=== PATIENT | male | born 1985 | race Caucasian/White ===

== ENCOUNTER → 2021-12-11 10:47 | Outpatient (CLI) | payer BC, SELFPAY | PROVIDERS: PCP Radiology Diagnostic Radiology; Visit Provider Nurse Practitioner | DX: Z20.822 Contact with and (suspected) exposure to COVID-19 (principal) | CPT/HCPCS: C9803; U0003; U0005 ==

== ENCOUNTER → 2021-12-18 11:15 | Outpatient (CLI) | payer BC, SELFPAY | PROVIDERS: Visit Provider Nurse Practitioner | DX: Z20.822 Contact with and (suspected) exposure to COVID-19 (principal) | CPT/HCPCS: C9803; U0003; U0005 ==

== ENCOUNTER 2023-10-23 12:43 | Emergency (ER) | payer BC, SELFPAY ==
[2023-10-23 12:44] VITALS: BP 124/98; PULSE 85; RESP 20; TEMP 37; O2SAT 97; BMI 32.5
--- OUTSIDE RECORDS SUMMARY | 2023-10-23 12:49 | XMS_ITS | Patient Health Record ---
Author Name Unknown Organization [facility]ERINE Address [address] [place] [address] Care Team Providers Care Cad Designer Drafter Name Role Phone Cory Durán Primary Care Provider McTanya Cesar Unavailable [phone] ALLERGIES No Known Allergies RESULTS Component Value Reference Range Notes Rapid Strep Reviewed date:06/11/2023 11:15:27 AM Interpretation:Negative Performing Lab: Notes/Report: Negative Rapid screen INFLUENZA A&B Reviewed date:06/11/2023 10:51:05 AM Interpretation: Performing Lab: Notes/Report: INFLUENZA A negative INFLUENZA B negative Rapid Covid Antigen Reviewed date:06/11/2023 10:51:05 AM Interpretation:Negative Performing Lab: Notes/Report: Negative INFLUENZA A&B Reviewed date:02/18/2023 09:06:21 PM Interpretation: Performing Lab: Notes/Report: INFLUENZA A negative INFLUENZA B negative Rapid Strep Reviewed date:09/19/2023 04:35:34 PM Interpretation:Negative Performing Lab: Notes/Report: Negative Rapid screen REASON FOR REFERRAL No Information MEDICATIONS Medication SIG (Take, Route, Frequency, Duration) Notes Start Date End Date Status Vimpat 100 mg 1 tab(s) orally 2 times a day Active IMMUNIZATIONS
--- NOTE | 2023-10-23 12:58 | EXP.UTC ---
Discharge Plan Disposition Patient Disposition: Home, Self-Care Condition: Good Prescriptions Prescriptions: New cephalexin 500 mg capsule 500 mg PO QID Qty: 40 0RF No Action lamotrigine 200 MG tablet 200 mg PO DAILY Patient Comments: take 1 tablet by mouth twice a day lacosamide [Vimpat] 100 MG tablet 100 mg PO DAILY prednisone 20 MG tablet 20 mg PO BID Qty: 10 0RF Referrals Follow up/Referrals: Cory Durán MD [Primary Care Provider] - See instructions Activity Restrictions/Add. Instructions Additional Instructions/Restrictions: Keep the wound clean and dry. Watch the wound for signs of infection, such as redness, swelling, drainage, fever. etc. Take tylenol or ibuprofen for pain. Follow up with your regular doctor. GO TO THE ER FOR ANY WORSENING SYMPTOMS OR CONCERNS. Clinical Impressions Clinical Impression: Laceration of left thumb, Need for Tdap vaccination Instructions Patient Instructions: DI for Laceration Repair-Skin Glue, DI for Laceration Repair -- Finger Discharge ED Provider: Leo Bean [facility] General Stated complaint: CUT THUMB ON LT HAND Time Seen by Provider: 10/23/23 12:58 History of Present Illness Provider Complaint: He states that he was cutting up food for thanksgiving dinner when he slipped and cut himself on the tip of his left thumb. His tetanus immunization is not up to date. Related Data Home Medications Medication Instructions Recorded Confirmed lamotrigine 200 mg tablet 200 mg PO DAILY SEIZURES 04/30/18 08/17/18 lacosamide 100 mg tablet (Vimpat) 100 mg PO DAILY SEIZURES 08/17/18 08/17/18 Previous Rx's Medication Instructions Recorded prednisone 20 mg tablet 20 mg PO BID #10 tabs 08/17/18 cephalexin 500 mg capsule 500 mg PO QID #40 caps 10/23/23 Allergies Allergy/AdvReac Type Severity Reaction Status Date / Time No Known Allergies Allergy Verified 04/30/18 19:31 [facility] Disclaimer: The information contained in this section may have been updated after the patient was seen, as this information can be updated by other users. Social History Smoking Status: Never smoker alcohol intake: current current occupational status: employed Travel in the last 8 weeks: None ROS Obtained: Yes All systems reviewed & no additional complaints except as documented Constitutional Constitutional: Denies chills and Denies fever(s) Eyes Eyes: Denies eye discharge ENT Ears, Nose, Mouth, and Throat: Denies dizziness, Denies otalgia and Denies sore throat Cardiovascular Cardiovascular: Denies chest pain Respiratory Respiratory: Denies shortness of breath, Denies chest congestion, Denies cough, Denies stridor and Denies wheezing Gastrointestinal Gastrointestingal: Denies nausea or vomiting Musculoskeletal Musculoskeletal: Reports system reviewed and no additional complaints, except as documented and Denies arthralgias Integumentary/Breasts Skin/Breast: Reports as per HPI Neurologic Neurologic: Denies dizziness and Denies paresthesias Allergic/Immunologic Allergic/Immunologic: Denies wheezing Physical Exam General General appearance: alert and in no apparent distress Head Head exam: atraumatic, normocephalic and normal inspection Eye Eye exam: Present normal appearance, PERRL and EOMI ENT ENT exam: Present normal exam, normal oropharynx, mucous membranes moist, TM's normal bilaterally and normal external ear exam Neck Neck exam: Present normal inspection, full ROM and trachea midline; Absent meningismus or lymphadenopathy Chest Chest inspection: Present normal inspection and symmetric chest wall rise; Absent tenderness Respiratory Respiratory exam: Present normal lung sounds bilaterally; Absent respiratory distress Cardiovascular Cardiovascular exam: Present regular rate and normal rhythm; Absent JVD Abdominal Exam Abdominal exam: Present soft and normal bowel sounds; Absent distention, tenderness or gua
[2023-10-23 14:18] VITALS: BP 124/98; PULSE 85; RESP 14; TEMP 37; O2SAT 97
== END 2023-10-23 14:19 | disposition home or self-care (01) ==
PROVIDERS: Emergency Provider Nurse Practitioner Family; PCP Internal Medicine Adolescent Medicine
DX: S61.012A Laceration without foreign body of left thumb without damage to nail, initial encounter (principal); W26.0XXA Contact with knife, initial encounter; Z23 Encounter for immunization
CPT/HCPCS: 12001; 90714; 96372; 99204; 99213; G0463

== ENCOUNTER 2024-02-05 12:35 | Emergency (ER) | payer BC, SELFPAY ==
[2024-02-05 12:43] VITALS: BP 133/82; PULSE 96; RESP 18; TEMP 37; O2SAT 98; BMI 32.5
--- NOTE | 2024-02-05 12:53 | PC.NURSE ---
paged for for er
--- NOTE | 2024-02-05 12:53 | HMH.EDGENADL ---
Discharge Plan Disposition Patient Disposition: Home, Self-Care Prescriptions Prescriptions: No Action lamotrigine 200 MG tablet 200 mg PO DAILY Patient Comments: take 1 tablet by mouth twice a day lacosamide [Vimpat] 100 MG tablet 100 mg PO DAILY prednisone 20 MG tablet 20 mg PO BID Qty: 10 0RF cephalexin 500 mg capsule 500 mg PO QID Qty: 40 0RF Referrals Follow up/Referrals: Cory Durán MD [Primary Care Provider] - See instructions Jaun Marie MD [Staff Physician] - See instructions Activity Restrictions/Add. Instructions Additional Instructions/Restrictions: Please follow-up with gastroenterology or general surgery for an outpatient EGD. Clinical Impressions Clinical Impression: Esophageal obstruction due to food impaction Discharge ED Provider: Ang Palma General Adult HPI General Stated complaint: choked Time Seen by Provider: 02/05/24 12:44 History of Present Illness HPI narrative: Patient is a 39-year-old male presents today with difficulty swallowing after eating chicken while at a [employer] restaurant. States this happened several years ago did have an esophageal dilation after that but was not given any diagnosis at that time he has been asymptomatic since then. No history of eosinophilic esophagitis, or other inflammatory pathology. He has not followed up with GI since that time. States he was eating chicken and immediately felt like he was choking Heimlich maneuver was attempted on him but has been breathing and speaking without difficulty. He cannot tolerate any secretions or liquid and has been trying multiple times since that time. Related Data Home Medications Medication Instructions Recorded Confirmed lamotrigine 200 mg tablet 200 mg PO DAILY SEIZURES 04/30/18 08/17/18 lacosamide 100 mg tablet (Vimpat) 100 mg PO DAILY SEIZURES 08/17/18 08/17/18 Previous Rx's Medication Instructions Recorded prednisone 20 mg tablet 20 mg PO BID #10 tabs 08/17/18 cephalexin 500 mg capsule 500 mg PO QID #40 caps 10/23/23 Allergies Allergy/AdvReac Type Severity Reaction Status Date / Time No Known Allergies Allergy Verified 04/30/18 19:31 [facility] Disclaimer: The information contained in this section may have been updated after the patient was seen, as this information can be updated by other users. Social History (Updated 10/23/23 @ 14:15 by Leo Bean APRN) Smoking Status: Never smoker alcohol intake: current current occupational status: employed Travel in the last 8 weeks: None ROS Obtained: Yes All systems reviewed & no additional complaints except as documented Physical Exam General General appearance: other (Patient actively spitting unable to tolerate secretions) Respiratory Respiratory exam: Present normal lung sounds bilaterally and respiratory distress Cardiovascular Cardiovascular exam: Present regular rate and normal rhythm Abdominal Exam Abdominal exam: Present soft; Absent distention or tenderness Neurological Exam Neurological exam: Present alert and oriented X3 Medical Decision Making Arcadio Inquiry Pt receiving controlled substance: No Medical Decision Narrative: Patient actively spitting unable to tolerate any fluids. Clinically has evidence of a esophageal obstruction due to food impaction. I spoke with Dr. Pinon will take the patient to the operating room. Assessment shortly after this conversation patient was not retching and spontaneously passed. I subsequently followed up with Dr. Pinon and informed him of this. I informed the patient to follow-up with gastroenterology for downstream EGD to further look into the pathology that is causing this which she understood. Patient was discharged in improved condition. Critical Care Critical Care Time Critical Care Time: No
--- NOTE | 2024-02-05 13:00 | PC.NURSE ---
CALLED 'S OFFICE TO LET HIM KNOW WE NO LONGER NEEDED HIS SERVICE PT SPONTANEOUS PASSED IT
[2024-02-05 13:08] VITALS: BP 131/95; PULSE 101; RESP 18; TEMP 36.7; O2SAT 97
== END 2024-02-05 13:10 | disposition home or self-care (01) ==
PROVIDERS: Emergency Provider Student in an Organized Health Care Education/Training Program; PCP Internal Medicine Adolescent Medicine
DX: T18.128A Food in esophagus causing other injury, initial encounter (principal); W44.F3XA Food entering into or through a natural orifice, initial encounter
CPT/HCPCS: 99284

== ENCOUNTER 2024-03-25 14:31 | Day surgery (SDC) | payer BC, SELFPAY ==
[2024-03-25 14:32] VITALS: PULSE 106; RESP 18; TEMP 36.7; O2SAT 99; BMI 32.5
--- NOTE | 2024-03-25 15:06 | HMH.EDGENADL ---
Discharge Plan Disposition Patient Disposition: Home, Self-Care Clinical Impressions Clinical Impression: Foreign body in esophagus, Food bolus obstruction of intestine Discharge ED Provider: Giorgio Churchill General Adult HPI General Chief complaint: Skin/Abscess/Foreign Body Stated complaint: object lodged in throat Time Seen by Provider: 03/25/24 14:55 Mode of Arrival: Ambulatory Source of Information: Patient Limitations: No Limitations Description of Symptoms (Recalled from ER Triage Doc. by RN): States that he has a piece of food stuck in his throat. Patient actively throwing up. History of Present Illness HPI narrative: Please note that above description of symptoms, in this electronic medical record under categorization of recalled from ER triage doctor by RN are reflective of an initial nursing assessment, however, is not reflective of my full history and physical exam that was personally taken and clarified. Consequentially, this preceding description of symptoms, which may include the patient's categorized chief complaint in the EMR, do not reflect my personal clinical impression, and the ultimate description of history of present illness and patient stated complaints should be deferred to this section of the note. Unless stated otherwise or congruent with this section of the note, additional signs, symptoms, or incongruence should be interpreted as inaccurate with my clinical impression. Related Data Home Medications Medication Instructions Recorded Confirmed lamotrigine 200 mg tablet 200 mg PO DAILY SEIZURES 04/30/18 08/17/18 lacosamide 100 mg tablet (Vimpat) 100 mg PO DAILY SEIZURES 08/17/18 08/17/18 esomeprazole magnesium 20 mg 20 mg PO DAILY 03/25/24 03/25/24 capsule,delayed release Previous Rx's Medication Instructions Recorded prednisone 20 mg tablet 20 mg PO BID #10 tabs 08/17/18 cephalexin 500 mg capsule 500 mg PO QID #40 caps 10/23/23 Allergies Allergy/AdvReac Type Severity Reaction Status Date / Time No Known Allergies Allergy Verified 04/30/18 19:31 [facility] Disclaimer: The information contained in this section may have been updated after the patient was seen, as this information can be updated by other users. Social History (Updated 10/23/23 @ 14:15 by Leo Bean APRN) Smoking Status: Never smoker alcohol intake: current alcohol intake frequency: holidays/special occasions only current occupational status: employed Travel in the last 8 weeks: None ROS Obtained: Yes All systems reviewed & no additional complaints except as documented Physical Exam General General appearance: alert and in no apparent distress Head Head exam: atraumatic and normocephalic Eye Eye exam: Present normal appearance, PERRL and EOMI ENT ENT exam: Present mucous membranes moist Neck Neck exam: Present normal inspection, full ROM and trachea midline Respiratory Respiratory exam: Absent respiratory distress, wheezes, stridor, accessory muscle use or prolonged expiratory phase Cardiovascular Cardiovascular exam: Present normal rhythm Abdominal Exam Abdominal exam: Present soft; Absent distention, tenderness, guarding, rebound or rigidity Extremities Exam Extremities exam: Absent edema Neurological Exam Neurological exam: Present alert, oriented X3, CN II-XII intact and normal gait; Absent motor sensory deficit Skin Skin exam: Present warm and dry; Absent diaphoresis or erythema Medical Decision Making Medical Records Medical records reviewed: Yes I reviewed the patient's medical records. Arcadio Inquiry Pt receiving controlled substance: No Arcadio was queried for this patient: No Vital Signs: 03/25/24 14:32 03/25/24 16:00 Temperature 98.0 F Temperature Source Oral Pulse Rate 71 Pulse Rate [Radial] 106 H Respiratory Rate 18 Blood Pressure 130/82 02 Sat by Pulse Oximetry 99 96 Oxygen Delivery Method Room Air Room Air Lab Data Lab Results 03/25/24 14:16: WBC 8.4, RBC 5.38, Hgb 16.7, Hct 49.3, MCV 91.6, MCH 31.0, MCHC 33.9, RDW 13.7, Plt Count 214, MPV 8.4, Neut % (Auto) 60.4, Lymph % (Auto) 30.3, Fergus % (Auto) 5.0, Eos % (Auto) 2.8, Baso % (Auto) 1.5, Neut # (Auto) 5.1, Lymph # (Auto) 2.5, Fergus # (Auto) 0.4, Eos # (Auto) 0.2, Baso # (Auto) 0.1, Sodium 142, Potassium 4.1, Chloride 106, Carbon Dioxide 28, Anion Gap 12.1, BUN 14, Creatinine 1.10, Estimated Creat Clear 142, Estimated GFR 75, Est GFR ( Amer) 91, Glucose 111 H, Calcium 10.3 H, Total Bilirubin 0.8, AST 43, ALT 39, Alkaline Phosphatase 81, Total Protein 8.2, Albumin 4.8, Globulin 3.4 H, Albumin/Globulin Ratio 1.4, Lipase 90 03/25/24 14:16 03/25/24 14:16 Orders (Tests/Meds): ED MEDICATIONS Discontinued Medications Generic Name Dose Route Start Last Admin Trade Name Donna PRN Reason Stop Dose Admin Glucagon 1 mg 03/25/24 15:06 03/25/24 15:28 Glucagon 1 Mg/Ml Vial IV 03/25/24 15:07 1 mg ONCE ONE Administration Glucagon 1 mg 03/25/24 15:54 03/25/24 15:58 Glucagon 1 Mg/Ml Vial IV 03/25/24 15:55 1 mg ONCE ONE Administration Lactated Ringer's 1,000 mls @ 999 mls/hr 03/25/24 15:06 03/25/24 15:27 Lactated Ringer's 1000 Ml Bag IV 03/25/24 16:06 999 mls/hr .Q1H1M ONE Administration Ondansetron HCl 4 mg 03/25/24 15:06 03/25/24 15:28 Ondansetron 4mg/2ml Vial IV 03/25/24 15:07 4 mg ONCE ONE Administration ORDERS Category Date Time Status CBC w/Auto Diff [Complete Blood Count Auto Diff] Stat Lab 03/25/24 14:16 Completed CMP [Comprehensive Metabolic Panel] Stat Lab 03/25/24 14:16 Completed Lipase Stat Lab 03/25/24 14:16 Completed Medical Decision Narrative: 39-year-old male history of seizure disorder well-controlled presenting with concern for food bolus. Patient states that he has had food boluses in the past, they generally self joan with p.o. intake. Last had esophagus stretched about 2 years prior. Patient states that 6 weeks ago, had food bolus he came to the emergency department for, but it cleared up with some p.o. intake. Was discharged without issue. Today, about an hour prior to this visit, patient states that he was eating chicken and rice, felt something get stuck. Has been unable to tolerate any p.o. intake since that time. States that he is tolerating his secretions, however he can feel them building up in my throat, and he vomits up what looks like saliva and mucus every 20 to 30 minutes. No chest pain, shortness of breath, diarrhea, fevers or chills, blood in the vomit, or any other concerns. 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 History was obtained via conversation with patient. On arrival, patient hemodynamically stable, alert, oriented x4, appropriate, GCS 15, moving all extremities spontaneously, pupils equal and reactive to light. Full physical exam performed and signifIcant for very well-appearing male. Not actively retching on my exam, but holding back of vomitus. Lungs are clear to auscultation, cardiac exam within normal limits. Abdomen soft, nontender, nondistended. No evidence of crepitus on chest exam or abdominal exam. Vital signs stable. Differential includes food bolus, stricture, web, sling, Lisa's esophagus, partial versus full esophagus lesion, among others. Patient was given fluids, Zofran, 1 mg glucagon for symptomatic management and correction of underlying abnormalities. Workup independently interpreted and significant for nonactionable hematologic workup. On reevaluation, patient thinks he is tolerating small sips. Try to drink the rest of a small 4 ounce water bottle, throughout the remainder, unable to tolerate secretions. General surgery was contacted and case was discussed at length, patient to be taken to IR suite. Because patient not on PPI at home, I will be sending this to his pharmacy. Recommend that he follow-up with surgery and GI outpatient, both him and family voiced understanding. Because patient high risk for clinical decompensation, deemed appropriate for inpatient admission. Results were relayed to patient who voiced understanding and patient was agreeable to inpatient admission and management. Patient was admitted to the hospital for further definitive management. Critical Care Critical Care Time Critical Care Time: No
[2024-03-25] MEDS: LACTATED RINGERS 1000ML 1,000 ML 999 ML IV (15:27)
[2024-03-25] MEDS: ONDANSETRON 4MG/2ML VIAL 4 MG IV (15:28)
[2024-03-25] MEDS: GLUCAGON 1 MG/ML VIAL IV ×2 (15:28→15:58)
[2024-03-25 15:32] LABS: Basophils # 0.1 K/mm3 (0-0.2); Basophils % 1.5 % (0.1-2.0); Eosinophils # 0.2 K/mm3 (0.0-0.4); Eosinophils % 2.8 % (0.1-12.0); Hematocrit 49.3 % (42.0-52.0); Hemoglobin 16.7 g/dL (14.1-18.0); Lymphocytes # 2.5 K/mm3 (0.7-4.5); Lymphocytes % 30.3 % (10-50); Mean Corpuscular HGB Conc 33.9 g/dL (31.8-35.4); Mean Corpuscular Volume 91.6 fl (80-94); Mean Platelet Volume 8.4 fl (7.4-10.4); Monocytes # 0.4 K/mm3 (0.1-1.0); Neutrophils # 5.1 K/mm3 (1.8-7.8); Neutrophils % 60.4 % (37.0-80.0); Platelet Count 214 K/mm3 (142-424); Red Blood Count 5.38 M/mm3 (4.60-6.20); Red Cell Distribution Width 13.7 % (11.5-17.5); White Blood Count 8.4 K/mm3 (4.8-10.8)
[2024-03-25 15:37] LABS: Chloride 106 mmol/L (98-107)
[2024-03-25 15:38] LABS: Potassium 4.1 mmoL/L (3.5-5.1); Sodium 142 mmol/L (136-145)
[2024-03-25 15:40] LABS: Alanine Aminotransferase 39 U/L (12-78); Alkaline Phosphatase 81 U/L (38-126); Anion Gap 12.1 mEq/L (5-15); Aspartate Amino Transferase 43 U/L (17-59); Bilirubin,Total 0.8 mg/dl (0.2-1.3); Blood Urea Nitrogen 14 mg/dl (9-20); Calcium 10.3 mg/dl (8.4-10.2); Carbon Dioxide 28 mmol/L (22.0-30.0); Creatinine Clearance Estimated 142 mL/min (50-200); Estimated Glomerular Filt Rate 75 ml/min (>60); GFR (African American) 91 ML/MIN (>60); Glucose 111 mg/dl (74-100); Lipase 90 U/L (23-300)
[2024-03-25 15:41] LABS: Albumin Level 4.8 g/dl (3.5-5.0); Albumin/Globulin Ratio 1.4 (1.1-1.8); Globulin 3.4 g/dL (1.3-3.2); Total Protein,Serum 8.2 g/dl (6.3-8.2)
--- NOTE | 2024-03-25 15:48 | PC.NURSE ---
DR PERERA AT BEDSIDE
[2024-03-25 16:00] VITALS: BP 130/82; PULSE 71; O2SAT 96
--- NOTE | 2024-03-25 16:24 | PC.NURSE ---
dr gutierrez paged
--- NOTE | 2024-03-25 16:27 | PC.NURSE ---
dr christina speaking with dr gutierrez
--- NOTE | 2024-03-25 16:30 | PC.NURSE ---
PER HAVE HOUSE CALL IN SURGERY TEAM
--- NOTE | 2024-03-25 16:30 | PC.NURSE ---
spoke with acid purification equipment operator to page maintenance construction helper sx team. OLYA Goins Kelsey, OR RN and Ang Diaz CRNA all spoke with.
--- NOTE | 2024-03-25 16:48 | PC.NURSE ---
dr gutierrez at bedside
--- NOTE | 2024-03-25 16:54 | PC.NURSE ---
report given to maria l galvan crna and surgery team. surgery packet sent with pt
[2024-03-25 16:58] VITALS: BP 130/84; PULSE 80; RESP 18; TEMP 36.7; O2SAT 98
--- NOTE | 2024-03-25 17:18 | P.PCN_ITS ---
Procedure: Date: 03/25/24 Patient Date of :: 1985 Procedure Performed:: Esophagogastroscopy with foreign body removal Indications:: Esophageal foreign body Performing Provider:: Jaun Marie MD Referring Provider:: [facility] emergency department Sedation:: Monitored anesthesia care Procedure:: After informed consent was obtained the patient was taken to the endoscopy suite. Sedation ensued after the patient was transferred to the left lateral decubitus position. Pulse, blood pressure, and oxygen saturation were monitored throughout the procedure. The endoscope was advanced into the gastric lumen aft er the foreign body was retrieved in a retrograde manner. Retroflexion within the gastric lumen was accomplished. The gastroscope was carefully removed and the patient was transferred to recovery in stable condition. Please see findings and specimens below for detail. Findings:: Foreign body at gastroesophageal junction consistent with ingested food particles (consistent with patient's report of meal of chicken ) Ingested bolus removed in a retrograde manner utilizing Acevedo net Specimens:: Esophageal foreign body (not sent for pathologic evaluation) Recommendations:: Proton pump inhibition Consider barium swallow and/or modified barium swallow in near future Complications:: No immediate Estimated blood obtained (mL): 0 Colonoscopy Component Colonoscopy Component Was a colonoscopy performed during today's procedure?: No
[2024-03-25 17:19] VITALS: BP 119/76; PULSE 73; RESP 19; TEMP 36.7; O2SAT 99
--- NOTE | 2024-03-25 17:25 | EXP.ANES.CKL ---
[facility] Disclaimer: The information contained in this section may have been updated after the patient was seen, as this information can be updated by other users. Social History (Updated 10/23/23 @ 14:15 by Leo Bean APRN) Smoking Status: Never smoker alcohol intake: current alcohol intake frequency: holidays/special occasions only substance use type: denies use current occupational status: employed Travel in the last 8 weeks: None [facility] Anesthesia Checklist Patient Identification Patient Identification: Verbal (Name & ) Structural Data Admitted From: Home Planned Operative Procedure/s: egd Consent for Planned Operative Procedure(s) Verified: Yes Airway Assessment Mallampati Score:: Class II C-Spine Mobility Assessed: Yes TMJ Mobility Assessed: Yes Dentition: Good Dentition Neurological Assessment Level of Consciousness: Awake, Alert and Appropriate Anesthesia Plan Anesthesia Risk discussed: Yes Anesthesia Plan: Verified ASA Class: II Anesthesia Type: MAC Preoperative Comments Pre-Operative Comments: emergency
[2024-03-25 17:29] VITALS: BP 123/82; PULSE 69; RESP 19; O2SAT 99
[2024-03-25 17:30] VITALS: BP 136/90; PULSE 74; RESP 19; O2SAT 98
== END 2024-03-25 17:40 | disposition home or self-care (01) ==
LOC: ER 14:54 → SDC 16:57
PROVIDERS: Emergency Provider Emergency Medicine; PCP Internal Medicine Adolescent Medicine; Visit Provider Surgery
PROC: 0DJ08ZZ Inspection of Upper Intestinal Tract, Via Natural or Artificial Opening Endoscopic (ICD-10-PCS; CPT 43235; principal; 2024-03-25 16:30)
DX: T18.128A Food in esophagus causing other injury, initial encounter (principal)
CPT/HCPCS: 43247; 80053; 83690; 85025; J1610; J2405

== ENCOUNTER 2024-04-01 09:15 | Outpatient (CLI) | payer BC, SELFPAY ==
--- NOTE | 2024-04-01 09:15 | FL_ITS ---
FINAL REPORT CLINICAL HISTORY: dysphagia 1543.47 dap 1.40 fluoro FINDINGS: BARIUM SWALLOW HISTORY: Dysphagia. TECHNIQUE: The patient ingested barium contrast. Spot and overhead films were performed. A total of 21 images were saved. FINDINGS: There is a small sliding-type hiatal hernia. There is no gastroesophageal reflux demonstrated. No mucosal defects are seen. Motility appears normal. No changes of esophagitis are evident. 13 mm barium tablet passes easily through the esoophagus and into the stomach. FLUOROSCOPY TIME: 1 minute 40 seconds Radiation exposure in Reference air Kerma: 1.40 mGy IMPRESSION: Small sliding-type hiatal hernia. Otherwise, unremarkable esophagram. Reviewed, Interpreted and Dictated by Farzaneh Mccord MD Transcribed by Christine Bustillos PA-C Authenticated and . [facility]
[2024-04-01] MEDS: BARIUM SULFATE(E-Z-AC);750ML BOTTLE 750 ML PO (09:40)
[2024-04-01] MEDS: BARIUM SULFATE (E-Z-HD 340GM);135ML BOTTLE 135 ML PO (09:41)
[2024-04-01] MEDS: E-Z-GASII EFFERVESCENT GRANULES;1PK 1 EACH PO (09:41)
== END 2024-04-01 23:59 | disposition home or self-care (01) ==
LOC: RAD 09:15
PROVIDERS: PCP Internal Medicine Adolescent Medicine; Visit Provider Surgery
DX: R13.10 Dysphagia, unspecified (principal)
CPT/HCPCS: 74220

== ENCOUNTER 2025-09-19 09:40 | Outpatient (CLI) | payer BC, SELFPAY ==
[2025-09-19 21:16] LABS: Coronavirus 19, PCR Not Detected (NotDetected); Influenza A, PCR Not Detected (NotDetected); Influenza B, PCR Not Detected (NotDetected)
== END 2025-09-19 23:59 | disposition home or self-care (01) ==
LOC: LAB.DROPOF 09-20 13:59
PROVIDERS: PCP Student in an Organized Health Care Education/Training Program; Visit Provider Student in an Organized Health Care Education/Training Program
DX: J06.9 Acute upper respiratory infection, unspecified (principal)
CPT/HCPCS: 87631